=== PATIENT | male | born 2000 | race Hispanic/Latino ===

== ENCOUNTER 2020-03-01 22:21 | Emergency (ER) | payer OTHER, SELFPAY ==
[2020-03-01 22:31] VITALS: BP 137/65; PULSE 80; RESP 18; TEMP 36.6; O2SAT 99
[2020-03-01] MEDS: TET,DIPH,PERTUSS(ACELL),VAC/PF 0.5 ML SYRINGE IM (22:51)
--- NOTE | 2020-03-01 23:38 | DI.RAD.S_ITS ---
PROCEDURE: XR FINGER LT MIN 2V INDICATIONS: cut finger with saw TECHNIQUE: AP hand, 2 views of the 2nd finger(s) acquired. COMPARISON: None. FINDINGS: Bones: No fractures or dislocations. No suspicious bony lesions. Soft tissues: No suspicious soft tissue calcifications. IMPRESSION: No acute osseous abnormalities. No significant discrepancy with the [employer] food shift lead radiology preliminary report. Dictated by: Roge Viczarra M.D. on 03/02/2020 at 8:51 Approved by: Roge Vizcarra M.D. on 03/02/2020 at 8:51
[2020-03-02] MEDS: LIDOCAINE 1% (PF) 2 ML SUBCUT (00:11)
--- NOTE | 2020-03-02 00:11 | ED.WOUNDLAC ---
HPI - Wound/Laceration General Chief Complaint: Wound/Laceration Stated Complaint: lt index finger cut Time Seen by Provider: 03/01/20 23:50 Source: patient and family Mode of arrival: Ambulatory Limitations: no limitations History of Present Illness HPI narrative: Patient here with . Complaints of laceration to the left index finger. Was using hacksaw to cut wood. Denies any numbness or tingling. Has a 2.5 cm laceration at the medial surface of the PIP joint of the left index finger. Bleeding controlled. Related Data Previous Rx's Medication Instructions Recorded cephalexin 500 mg PO QID #20 cap 03/02/20 Allergies Allergy/AdvReac Type Severity Reaction Status Date / Time No Known Drug Allergies Allergy Verified 03/02/20 00:50 Review of Systems Review of Systems Narrative: GENERAL: Denies chills, fatigue, malaise, fever, sweats. HEENT: Denies sinus pain, ear pain, sore throat, difficulty swallowing RESPIRATORY: Denies dyspnea, cough CARDIOVASCULAR: Denies chest pain, palpitations, edema, GASTROINTESTINAL: Denies nausea, vomiting, abdominal pain, diarrhea, constipation, melena. : Denies dysuria, frequency, hematuria MUSCULOSKELETAL: Complains muscle or bony pain SKIN: Denies rash, skin lesions NEUROLOGIC: Denies weakness, headache, numbness, change in speech, confusion PSYCHIATRIC: No SI or HI or hallucinations ROS Unobtainable: All systems reviewed & are unremarkable except as noted in HPI and below Patient History Social History Smoking Status: Current every day smoker Smoking Status: Current every day smoker alcohol intake frequency: a few times a month Substance Use Type: does not use Exam Narrative Exam Narrative: GENERAL: patient appears stated age. Well-nourished, well-developed patient, in no distress, not toxic not dyspneic HEAD: Normocephalic. EXTREMITIES: No gross deformities. Examination left hand. There is a 2.5 cm linear well-approximated laceration at the medial surface of the PIP joint of the left index finger. Patient able to fully flex and extend individually isolated at the MCP PIP and the PIP joints of this finger. Light touch intact to the finger. Based visualized. No tendon injury or bony injury seen. No foreign body. No active bleeding. NEURO: AOx4. SKIN: Warm and dry PSYCH: Not anxious, is cooperative Initial Vital Signs Initial Vital Signs: Vital Signs Temperature 98 F 03/01/20 22:31 Pulse Rate 80 03/01/20 22:31 Respiratory Rate 18 03/01/20 22:31 Blood Pressure 137/65 03/01/20 22:31 Pulse Oximetry 99 03/01/20 22:31 Procedures Laceration Repair Laceration 1: Site: other (Left index finger) Side (If applicable): left Size (cm): 2.5 Description: linear Depth: simple, single layer Local Anesthetic: lidocaine 1% and bupivacaine 0.25% Amount of anesthesia used (mL): 3 Pre-repair: wound explored, irrigated extensively and deep structures intact Skin layer closed with: nylon Size (cm): 5-0 Number of sutures: 4 Technique: simple, interrupted Course Orders Ordered: ED Orders 03/01/20 23:38 XR finger LT min 2V Stat Discontinued Medications Bacitracin (Bacitracin Oint 0.9 Gm Pckt) 2 applic TOP NOW ONE Stop: 03/02/20 01:29 Last Admin: 03/02/20 01:50 Dose: 2 applic Documented by: MATTHIAS Bupivacaine HCl (Bupivacaine 0.5% Mdv) 1 ml INJ INTRA-OP ONE Stop: 03/02/20 00:23 Last Admin: 03/02/20 00:28 Dose: Not Given Documented by: MATTHIAS Bupivacaine HCl (Bupivacaine 0.5% Mdv) 5 ml SUBCUT NOW ONE Stop: 03/02/20 00:34 Last Admin: 03/02/20 00:44 Dose: Not Given Documented by: MATTHIAS Bupivacaine HCl (Bupivacaine 0.25% (Pf) Vial) 30 ml INJ INTRA-OP ONE Stop: 03/02/20 00:38 Last Admin: 03/02/20 01:00 Dose: 30 ml Documented by: MATTHIAS Cephalexin HCl (Cephalexin 250 Mg Capsule) 500 mg PO NOW ONE Stop: 03/02/20 01:14 Last Admin: 03/02/20 01:18 Dose: 500 mg Documented by: MARY Diphtheria/Tetanus/Acell Pertussis (Tet,Diph,Pertuss(Acell),Vac/Pf 0.5 Ml Syringe) 0.5 ml IM .ONCE ONE Stop: 03/01/20 22:34 Last Admin: 03/01/20 22:51 Dose: 0.5 ml Documented by: MATTHIAS Lidocaine HCl (Lidocaine 1% (Pf)) 2 ml SUBCUT NOW ONE Stop: 03/02/20 00:08 Last Admin: 03/02/20 00:11 Dose: 2 ml Documented by: MATTHIAS Neomycin/Polymyxin/Bacitracin (Neomycin/Polymyx/Bacitrac 28.35 Gm Oint) 2 applic TOP NOW ONE Stop: 03/02/20 01:20 Last Admin: 03/02/20 01:23 Dose: Not Given Documented by: MATTHIAS Neomycin/Polymyxin/Bacitracin (Neomycin/Polymyxin/Bacitra Ud Oint) 2 each TOP NOW ONE Stop: 03/02/20 01:25 Vital Signs Vital signs: Vital Signs - 8 hr 03/01/20 22:31 03/02/20 01:35 Temperature 98 F Pulse Rate 80 70 Respiratory Rate 18 16 Blood Pressure 137/65 112/55 L Pulse Oximetry 99 97 MDM - Wound/Laceration Differential Diagnosis Differential diagnosis: Likely laceration Imaging Data Extremity x-ray #1: Radiologist's Impression: X-ray left 2nd digit three views. No fracture or dislocation. No foreign body. Laceration present. No osseous abnormality Discharge Plan Departure Patient Disposition: Home Clinical Impression: Laceration Instructions: DI for Laceration Repair Activity Restrictions/Additional Instructions: Return if worsening questions or concerns. For stitches to be removed in 10 days. Change dressing twice a day with warm soap and water and then apply thin layer of topical antibiotic. Be sure not to bend the finger. Return if any fever or finger redness or discharge from the wound. Prescription for antibiotic has been sent to [facility] in [place]. Prescriptions: New cephalexin 500 mg capsule 500 mg PO QID Qty: 20 RF: 0
[2020-03-02] MEDS: BUPIVACAINE 0.25% (PF) VIAL 30 ML INJ (01:00)
[2020-03-02] MEDS: cephALEXin 250 MG CAPSULE 500 MG PO (01:18)
[2020-03-02 01:35] VITALS: BP 112/55; PULSE 70; RESP 16; O2SAT 97
[2020-03-02] MEDS: BACITRACIN OINT 0.9 GM PCKT 2 APPLIC TOP (01:50)
== END 2020-03-02 01:42 | disposition home or self-care (01) ==
PROVIDERS: Emergency Provider Emergency Medicine
DX: S61.211A Laceration without foreign body of left index finger without damage to nail, initial encounter (principal); W29.8XXA Contact with other powered hand tools and household machinery, initial encounter; Z23 Encounter for immunization
CPT/HCPCS: 12001; 73140; 90471; 99283; 90715